=== PATIENT | female | born 1970 | race African-American/Black ===

== ENCOUNTER 2019-03-17 11:08 | Emergency (ER) | payer OTHER ==
[~2019-03-17] VITALS: Ht 170.2 cm; Wt 81.8 kg
[2019-03-17] MEDS ORDERED: IBUPROFEN 800 MG TABLET PO ONE (12:00)
[2019-03-17 13:50] VITALS: BP 134/86
== END 2019-03-17 14:02 | disposition home or self-care (01) ==
LOC: EMS 11:08
DX: S43.402A Unspecified sprain of left shoulder joint, initial encounter (principal); S80.11XA Contusion of right lower leg, initial encounter; F17.210 Nicotine dependence, cigarettes, uncomplicated; V43.52XA Car driver injured in collision with other type car in traffic accident, initial encounter; Y93.89 Activity, other specified; Y92.488 Other paved roadways as the place of occurrence of the external cause; Y99.8 Other external cause status
CPT/HCPCS: 72040; 72070; 72100; 99406

== ENCOUNTER 2023-04-02 03:08 | Emergency (ER) | payer OTHER ==
[~2023-04-02] VITALS: Ht 167.6 cm; Wt 93.0 kg
[2023-04-02 03:31] LABS: COVID AG,FIA SOURCE NASAL SWAB
[2023-04-02 03:51] LABS: INFLUENZA TYPE A NEGATIVE FOR TYPE A (NEGATIVE); INFLUENZA TYPE B NEGATIVE FOR TYPE B (NEGATIVE); SARS-COV2 (COVID) ANTIGEN,FIA Negative (Negative)
[2023-04-02] MEDS ORDERED: PredniSONE 20 MG TABLET PO ONE (04:30)
[2023-04-02] MEDS ORDERED: ALBUTEROL SULFATE 2.5 MG/0.5 ML NEB SOLUTION NEB ONE (04:30)
[2023-04-02] MEDS ORDERED: IPRATROPIUM BROMIDE 0.5 MG/2.5 ML NEB SOLUTION NEB ONE (04:30)
[2023-04-02 04:37] VITALS: PULSE 81; RESP 20; O2SAT 93
[2023-04-02 04:52] VITALS: PULSE 83; RESP 20; O2SAT 99
[2023-04-02] MEDS ORDERED: ALBU18HF12 IH (05:54)
[2023-04-02] MEDS ORDERED: PRED-554 PO (05:54)
[2023-04-02] MEDS ORDERED: AZIT250T9 PO (05:54)
[2023-04-02 06:52] VITALS: BP 133/76; PULSE 89; RESP 20; TEMP 98.3
== END 2023-04-02 06:59 | disposition home or self-care (01) ==
LOC: EMS 03:08
DX: J45.909 Unspecified asthma, uncomplicated (principal); J06.9 Acute upper respiratory infection, unspecified; Z20.822 Contact with and (suspected) exposure to COVID-19
CPT/HCPCS: 99284; 71045; 87426; 87804; 94640; J7512; J7613